=== PATIENT | female | born 1995 | race Two or more races ===

== ENCOUNTER 2024-09-06 22:49 | Emergency (ER) | payer BC ==
[~2024-09-06] VITALS: Ht 157.5 cm; Wt 99.8 kg
[2024-09-07] MEDS: IPRATROPIUM BROMIDE 0.5 MG/2.5 ML NEBU NEB ONE (02:30)
[2024-09-07] MEDS: DOXYCYCLINE HYCLATE IV 100 MG in IV DEXTROSE 5% 100 ML IV ONE (02:30)
[2024-09-07] MEDS: ALBUTEROL SULFATE 2.5 MG/3 ML NEBU NEB ONE (02:30)
[2024-09-07] MEDS ORDERED: IPRATROPIUM BROMIDE 0.5 MG/2.5 ML NEBU ONE (02:34)
[2024-09-07] MEDS ORDERED: ALBUTEROL SULFATE 2.5 MG/3 ML NEBU ONE (02:34)
[2024-09-07] MEDS ORDERED: methylPREDNISolone SOD SUCC 125 MG/2 ML VIAL ONE (02:43)
[2024-09-07] MEDS ORDERED: MAGNESIUM SULFATE/D5W 200 ML ONE (02:44)
[2024-09-07 02:45] VITALS: O2SAT 99
[2024-09-07] MEDS: methylPREDNISolone SOD SUCC 125 MG/2 ML VIAL IV ONE (02:49)
[2024-09-07] MEDS: MAGNESIUM SULFATE 2 GM in IV DEXTROSE 5% 100 ML IV ONE (02:50)
[2024-09-07 02:57] LABS: BASOPHILS # (AUTO) 0.1 K/UL (0.0-0.2); BASOPHILS % (AUTO) 0.8 % (0.0-2.0); EOSINOPHILS % (AUTO) 0.1 % (0.0-7.0); HEMATOCRIT 41.9 % (31.2-41.9); HEMOGLOBIN 14.5 g/dL (10.9-14.3); LYMPHOCYTES # (AUTO) 0.9 K/uL (0.8-4.8); LYMPHOCYTES % (AUTO) 5.9 % (20.5-51.5); MEAN CORPUSCULAR HEMOGLOBIN 31.7 uug (24.7-32.8); MEAN CORPUSCULAR HGB CONC 35 g/dL (32.3-35.6); MEAN CORPUSCULAR VOLUME 91.5 fL (75.5-95.3); MONOCYTES # (AUTO) 0.3 K/uL (0.1-1.30); MONOCYTES % (AUTO) 1.9 % (0.0-11.0); NEUTROPHILS # (AUTO) 14.1 K/uL (1.8-8.9); NEUTROPHILS % (AUTO) 91.3 % (38.5-71.5); PLATELET COUNT (AUTO) 350 K/uL (179-408); RED BLOOD CELL COUNT(AUTO) 4.58 MIL/uL (3.63-4.92); RED CELL DISTRIBUTION WIDTH 12.4 % (12.3-17.7); WHITE BLOOD COUNT (AUTO) 15.4 K/uL (3.8-11.8)
[2024-09-07 03:40] LABS: ALBUMIN 3.6 g/dL (3.4-5.0); BILIRUBIN,TOTAL 0.4 mg/dL (0.2-1.0); CREATININE 0.8 mg/dL (0.6-1.3); MAGNESIUM 1.7 mg/dL (1.8-2.4); POTASSIUM 3.5 mmol/L (3.5-5.1); TOTAL PROTEIN, SERUM 7.8 g/dL (6.4-8.2)
[2024-09-07 03:56] LABS: C-REACTIVE PROTEIN 3.83 mg/dL (0.00-0.30)
[2024-09-07] MEDS ORDERED: DOXYCYCLINE HYCLATE 100 MG TABLET ONE (04:07)
[2024-09-07] MEDS: DOXYCYCLINE HYCLATE 100 MG TABLET PO ONE (04:10)
[2024-09-07 05:52] VITALS: BP 147/91; TEMP 98.1; O2SAT 95
== END 2024-09-07 05:30 | disposition home or self-care (01) ==
LOC: ER 22:49
DX: J45.901 Unspecified asthma with (acute) exacerbation (principal); R06.02 Shortness of breath; Z20.822 Contact with and (suspected) exposure to COVID-19
CPT/HCPCS: 99285; 96365; 71045; 96375; 87426; 87804 ×2; 80053; 83735; 85025; 84145; 86140; 36415; 94640; 93005; J3475; J2919; A4606; A4663; J3490; J3590